=== PATIENT | female | born 1985 | race African-American/Black ===

== ENCOUNTER 2024-04-15 09:59 | Emergency (ER) | payer OTHER, SELFPAY ==
--- NOTE | 2024-04-15 10:09 | ED_ITS ---
HPI - URI/Sore Throat General Chief Complaint: Upper Respiratory Infection Stated Complaint: SORE THROAT History of Present Illness HPI Narrative: 39 y/o female presented for c/o sore throat x2 days. Reports a cough and nasal congestion 5 days prior to onset has improved. Taking Dayquil and Nyquil, mucinex. Denies n/v/d/f/c. Related Data Home Medications Medication Instructions Recorded Confirmed levonorgestrel 21 mcg/24 hr (up to 1 device intrauterine ONCE 12/11/23 12/11/23 8 years) 52 mg intrauterine device (Mirena) Allergies Allergy/AdvReac Type Severity Reaction Status Date / Time No Known Allergies Allergy Verified 12/11/23 14:49 Review of Systems Review of Systems: CONSTITUTIONAL: reports malaise. Denies body aches, fever, chills, or sweats. EYES: Denies visual changes, redness, or discharge. ENT: reports sore throat Denies rhinorrhea, congestion, or otalgia. CARDIOVASCULAR: Denies chest pain, palpitations, or edema. RESPIRATORY: Denies dyspnea. GASTROINTESTINAL: Denies abdominal pain, nausea, vomiting, or diarrhea. SKIN: Denies rash MUSCULOSKELETAL: Denies back pain, joint pain NEUROLOGIC: Denies headache PMFSH Past Medical History Medical History Genital HSV Family History Family History Mother Arthritis Grandparent Diabetes mellitus Other Family history of malignant neoplasm of breast in first degree relative Social History Social History Smoking status: Never smoker Second hand tobacco smoke exposure: No Alcohol intake: current Exam Narrative: GENERAL: mildly Ill-appearing, no acute distress. EYES: conjunctivae clear ENT: Mucous membranes moist. TMs pearly rodriguez with normal light reflex bilate rally; no tragal tenderness. Oropharynx severely erythematous without lesions. Tonsils enlarged 2+ with exudate. No drooling, no hoarseness, no trismus, uvula midline. No tripod positioning, hot potato voice, or soft palate swelling. NECK: Supple. No lymphadenopathy CHEST: Clear to auscultation, breath sounds equal. No respiratory distress, speaks in full sentences. HEART: Regular rate and rhythm. No murmur heard. SKIN: Warm, dry, no rash. NEURO: Alert and oriented x3. Course Course Emergency Course: Patient is aware of diagnosis, understands and agrees to treatment plan. Anticipatory guidance given. Patient agrees to follow-up as directed and is aware of reasons to seek care at the emergency department. Portions of this record may have been created with voice recognition software Level of Care: Express Care Visit Vital Signs Vital signs: Vital Signs Temperature 98.7 F 04/15/24 10:14 Pulse Rate 104 H 04/15/24 10:14 Respiratory Rate 16 04/15/24 10:14 Blood Pressure 138/90 04/15/24 10:14 Pulse Oximetry 98 04/15/24 10:14 Temperature 98.7 F 04/15/24 10:14 Pulse Rate 104 H 04/15/24 10:14 Respiratory Rate 16 04/15/24 10:14 Blood Pressure 138/90 04/15/24 10:14 Pulse Oximetry 98 04/15/24 10:14 MDM - URI/Sore Throat MDM Narrative Medical decision making narrative: Neg strep result reviewed with pt. However will treat based on PE and CC. Advise supportive treatments. Patient is appropriate for outpatient treatment and follow-up. Differential Diagnosis Differential diagnosis: Likely upper respiratory infection, viral infection and pharyngitis Lab Data Lab results narrative: and Labs: Lab Results 04/15/24 Range/Units 10:09 POC Grp A Strep Screen Negative (Negative) Discharge Plan Discharge Clinical Impression: Exudative tonsillitis Patient Disposition: Home, Self-Care Condition: Stable Instructions: Antibiotic Form, Strep Throat (ED) Additional Instructions: - Take the antibiotic as directed. Fever and sore throat typically resolve within one to three days. Most patients can return to work after 12 to 24 hours of antibiotic therapy, provided you are fever free and otherwise well. -Eat and drink things that are easy to swallow, like soft foods, cool liquids, tea with honey, or popsicles . -Salt water gargles and/or may use topical anesthetic ( Chloraseptic spray) or lozenges to relieve dryness or throat pain -Alternate Tylenol and ibuprofen as needed for pain and fever as directed. -Frequent hand washing or hand service station console operator is one of the best ways to prevent spread of infection. Throw away the toothbrush after 24hours of antibiotic. -Follow up with primary care provider in 2-3 days if condition is not improving -Go to the ER if you have trouble breathing, cannot drink enough fluids, have muffled voice or drooling, difficulty opening your mouth, or severe swelling. Prescriptions: New amoxicillin 500 mg tablet 1,000 mg PO DAILY 10 Days Qty: 20 0RF No Action Mirena 21 mcg/24 hr (8 yrs) 52 mg intrauterine device 1 device intrauterine ONCE Rx Instructions: as a single dose valacyclovir 500 mg tablet 500 mg PO DAILY Qty: 90 3RF Follow-up/Referrals: PHYSICIAN,CARDIOTHORACIC ICU RN [Primary Care Provider] - Stand Alone Forms: Work/School Release IP Time of Disposition: 10:25
[2024-04-15 10:14] VITALS: BP 138/90; PULSE 104; RESP 16; TEMP 37.1; O2SAT 98
[2024-04-15 10:23] LABS: EDSTREPNEGPOS1 Negative (Negative)
== END 2024-04-15 10:27 | disposition home or self-care (01) ==
PROVIDERS: Emergency Provider Nurse Practitioner Family
DX: J03.90 Acute tonsillitis, unspecified (principal)
CPT/HCPCS: 87081; 87880; 99213; G0463